=== PATIENT | female | born 1995 | race Two or more races ===

== ENCOUNTER 2021-06-17 17:16 | Emergency (ER) | payer MEDICAID ==
[~2021-06-17] VITALS: Ht 170.2 cm; Wt 50.0 kg
[2021-06-17 22:15] VITALS: BP 129/95
--- NOTE | 2021-06-17 22:20 | NUR ---
D/C INSTRUCTIONS & F/U APPT RV'WD WITH PT, SHE VERBALIZES UNDERSTANDING. PT AMBULATED OUT OF ED WITH WITHOUT DIFFICULTY.
== END 2021-06-17 22:30 | disposition home or self-care (01) ==
LOC: ED 22:00
DX: G89.11 Acute pain due to trauma (principal); M25.511 Pain in right shoulder; M25.521 Pain in right elbow; M79.621 Pain in right upper arm; X58.XXXA Exposure to other specified factors, initial encounter; Y93.89 Activity, other specified; Y92.89 Other specified places as the place of occurrence of the external cause; Y99.8 Other external cause status
CPT/HCPCS: 99284